=== PATIENT | female | born 1960 | race Caucasian/White ===

== ENCOUNTER 2025-05-13 19:24 | Emergency (ER) | payer OTHER, SELFPAY ==
[2025-05-13] VITALS (7 sets, daily range): BP systolic 129–169; BP diastolic 71–86; PULSE 80–148; RESP 17–21; TEMP 36–36.6; O2SAT 95–99; BMI 31.8
--- NOTE | 2025-05-13 | ECG_ITS ---
Test Reason : DIZZINESS Blood Pressure : */* mmHG Vent. Rate : 129 BPM Atrial Rate : * BPM P-R Int : * ms QRS Dur : 100 ms QT Int : 320 ms P-R-T Axes : * -30 -46 degrees QTcB Int : 468 ms Atrial fibrillation with rapid ventricular response Left axis deviation ST depression, consider subendocardial injury Nonspecific T wave abnormality Abnormal ECG No previous ECGs available Referred By: Generic ED Physician Electronically Signed By: Leander Fitzgerald
--- NOTE | ~2025-05-13 | CT_ITS ---
CLINICAL HISTORY: Acute headache and neck pain after yoga?dissection CT head without contrast Comparison: None provided Findings: Intraventricular hemorrhage in the lateral, 3rd and 4th ventricles with mild hydrocephalus. There is crowding of the structures in the foramen magnum with peripheral hyperdensity anterior to the lashawn and medulla which may be subarachnoid hemorrhage vs blood vessels. Lobulated density dorsal to the proximal cord at the level of the foramen magnum may be cerebellar tonsilllar ectopia versus epidural hematoma. Perry-white matter differentiation is preserved. There is no sinus or mastoid fluid. The orbits are within normal limits. No skull fracture. IMPRESSION: 1. Intraventricular hemorrhage involving lateral, 3rd and 4th ventricles with mild hydrocephalus. 2. Possible subarachnoid hemorrhage anterior to the lashawn and medulla. 3. Possible epidural hematoma versus cerebellar tonsillar herniation at foramen magnum. This document has been electronically signed by: Veto Harry MD on 05/13/2025 21:26:06
[2025-05-13 19:54] LABS: MANUAL DIFF FLAG NO
[2025-05-13 19:55] LABS: Hematocrit 33.2 % (37.0-47.0); Hemoglobin 11.4 g/dl (12.0-16.0); Imm Gran Abs Auto 0.13 X10*3/uL (0.00-0.03); Imm Gran Pct Auto 1.5 % (0.0-0.4); Lymphocytes Absolute Auto 2.8 X10*3/uL (1.2-4.9); Mean Corpuscular HGB Conc 34.3 g/dl (31.0-35.0); Mean Corpuscular Hemoglobin 28.6 pg (27.0-33.0); Mean Corpuscular Volume 83.4 fL (80.0-98.0); NRBC Abs Auto 0.000 X10*3/uL (0.0-0.012); NRBC Pct Auto 0.0 /100WBC (0.0-0.2); Platelet Count 278 X10*3/uL (160-400); Red Blood Count 3.98 X10*6/uL (4.20-5.50); White Blood Count 8.6 X10*3/uL (4.8-10.8)
[2025-05-13 20:09] LABS: Alanine Aminotransferase 20 U/L (0-31); Albumin Level 4.0 g/dL (3.5-5.0); Alkaline Phosphatase 43 U/L (39-117); Anion Gap 15 (12-20); Aspartate Amino Transferase 24 U/L (5-31); Blood Urea Nitrogen 24 mg/dL (9-16); Calcium 8.5 mg/dL (8.4-10.2); Carbon Dioxide 19 mmol/L (22-29); Chloride 107 mmol/L (96-108); Creatinine Clr Calc Pharmacy 68.3; Estimated Glomerular Filt Rate 59; Lipase 62 U/L (8-78); Potassium 3.1 mmol/L (3.3-5.1); Sodium 138 mmol/L (135-145); Total Protein 6.6 g/dL (6.5-8.0)
--- NOTE | 2025-05-13 20:12 | ED.GENADULT ---
HPI - General Adult General Chief complaint: Headache Stated complaint: headache after yoga Time Seen by Provider: 05/13/25 20:01 Source: patient Mode of arrival: EMS Limitations: no limitations History of Present Illness ED Provider: HPI narrative: Patient apparently was doing some yoga suddenly noticed headache in the right side with nausea and vomiting patient does not have history of migraine headache after arrival patient's still having the headache vomited 2 times monitoring coordinator showed patient has a AFib which is new onset ??ventricular rate of 129 beats per minute patient is slightly confused lasting questions very slowly GCS 15 Related Data Allergies Allergy/AdvReac Type Severity Reaction Status Date / Time Penicillins Allergy Unknown Verified 05/13/25 19:48 Review of Systems Review of Systems: Yes Unobtainable due to mental status PMFSH Social History Social History Smoked in Last 30 Days: No Use of substances other than those prescribed or required for medical reasons: No Advance Directives: No Advance Directives Information Provided: No Do you have a plan to hurt others: No Plan Physical Exam ED Vital Signs: Vital Signs - 24 hr 05/13/25 19:39 05/13/25 20:00 05/13/25 20:27 Temperature 96.8 F 97.2 F Pulse Rate 81 137 H 138 H Respiratory Rate 20 18 17 Blood Pressure 169/75 H 132/86 132/86 Pulse Oximetry 98 96 95 Oxygen Delivery Method Room Air Room Air Room Air 05/13/25 20:58 05/13/25 21:38 05/13/25 22:20 Temperature Pulse Rate 144 H 140 H 146 H Respiratory Rate 21 H 21 H Blood Pressure 129/75 135/76 141/75 H Pulse Oximetry 95 96 Oxygen Delivery Method Room Air Room Air 05/13/25 22:58 Temperature 98 F Pulse Rate 148 H Respiratory Rate 21 H Blood Pressure 142/71 H Pulse Oximetry 96 Oxygen Delivery Method Room Air BMI result Body Mass Index 31.8 Appearance: Alert. Oriented X3. Complaining of headache nauseated vomiting small amounts slow to respond Eyes: PERRLA, No Nystagmus ENT: Pharynx normal. Oral Mucosa moist Neck: Normal inspection. Neck supple. CVS: Tachycardic irregularly irregular. Pulses normal. Respiratory: No respiratory distress. Equal air entry bilateral, no wheezing/rales/rhonchi Abdomen: Soft and nontender. Bowel sounds are present, no mass palpable, no CVA tenderness Skin: Skin warm and dry. Normal skin color. Normal skin turgor. Extremities: No lower extremity edema. No calf tenderness Neuro: Oriented X 3. No motor deficit. No sensory deficit.No cerebellar signs , cranial nerves II-XII intact GCS 15 Medications Administered Discontinued Medications Generic Name Dose Route Start Last Admin Trade Name Freq PRN Reason Stop Dose Admin Diltiazem HCl 10 mg 05/13/25 20:20 05/13/25 20:58 Diltiazem Hcl 50 Mg/10 Ml Vial IVPUSH 05/13/25 20:21 10 mg NOW STA Administration Acetaminophen 1,000 mg in 100 mls @ 400 mls/hr 05/13/25 22:40 05/13/25 22:57 Ofirmev IV 05/13/25 22:54 Infused ONCE ONE Infusion Metoprolol Tartrate 5 mg 05/13/25 22:41 05/13/25 22:45 Metoprolol Tartrate 5 Mg/5 Ml Vial IVPUSH 05/13/25 22:42 5 mg ONCE ONE Administration Protocol Ondansetron HCl 4 mg 05/13/25 20:38 05/13/25 21:00 Ondansetron Hcl 4 Mg/2 Ml Vial IVPUSH 05/13/25 20:39 4 mg ONCE ONE Administration Medical Decision Making Medical Decision Making [facility] [place] Narrative: Patient's sister javed torres [phone] denies any significant past medical history patient's blood pressure improved to 129/74 ventricular rate [address] scan of the brain showed intra ventricular bleed involving lateral 3rd and 4th ventricular with mild hydrocephalus [facility] called for transfer patient's GCS is 15 complaining of headache 2139: Case discussed Dr. Arnold at [facility] accepted the patient no need for Decadron or Keppra at this time patient is slightly confused unaware where she is now GCS of 14 still complaining of headache 22:40 patient is still complaining of headache GCS of 14 blood pressure 139/71 , VR 142, will give Tylenol 1 g IV had Lopressor 5 mg IV EMS here take the patient to [facility] Differential Diagnosis Differential Diagnoses: The differential diagnosis associated with the presentation includes Subarachnoid bleed/intracranial bleed/CVA/carotid dissection Admission/Observation Consideration of admission/observation: Escalation of care including admission/observation considered Lab Data MDM Lab Attestation statement: I reviewed the patient's lab results. 05/13/25 19:47 05/13/25 19:47 Labs: Lab Results 05/13/25 05/13/25 05/13/25 Range/Units 19:47 19:50 20:29 WBC 8.6 (4.8-10.8) X10*3/uL RBC 3.98 L (4.20-5.50) X10*6/uL Hgb 11.4 L (12.0-16.0) g/dl Hct 33.2 L (37.0-47.0) % MCV 83.4 (80.0-98.0) fL MCH 28.6 (27.0-33.0) pg MCHC 34.3 (31.0-35.0) g/dl RDW 15.4 (11.0-16.0) % Plt Count 278 (160-400) X10*3/uL MPV 10.7 (9.4-12.3) fL Immature Gran % (Auto) 1.5 H (0.0-0.4) % Neut % (Auto) 51.0 (45-73) % Lymph % (Auto) 32.1 (20-40) % [place] % (Auto) 8.4 (2-11) % Eos % (Auto) 6.3 H (0-4) % Baso % (Auto) 0.7 (0-2) % Lymph # (Auto) 2.8 (1.2-4.9) X10*3/uL [place] # (Auto) 0.7 (0.1-1.2) X10*3/uL Eos # (Auto) 0.5 H (0.0-0.4) X10*3/uL Baso # (Auto) 0.1 (0.0-0.2) X10*3/uL Abs Immat Gran (auto) 0.13 H (0.00-0.03) X10*3/uL Absolute Neuts (auto) 4.4 (2.0-8.3) x10*3/uL Absolute Nucleated RBC 0.000 (0.0-0.012) X10*3/uL Nucleated RBC % (auto) 0.0 (0.0-0.2) /100WBC PT 11.4 (10.9-12.4) SEC INR 1.0 (0.9-1.1) APTT 27.8 (26.0-36.8) SEC Sodium 138 (135-145) mmol/L Potassium 3.1 L (3.3-5.1) mmol/L Chloride 107 (96-108) mmol/L Carbon Dioxide 19 L (22-29) mmol/L Anion Gap 15 (12-20) BUN 24 H (9-16) mg/dL Creatinine 0.96 (0.5-1.4) mg/dL Estim Creat Clear Calc 68.3 Estimated GFR 59 Random Glucose 147 H (60-115) mg/dL Calcium 8.5 (8.4-10.2) mg/dL Total Bilirubin 0.4 (0.0-1.0) mg/dL AST 24 (5-31) U/L ALT 20 (0-31) U/L Alkaline Phosphatase 43 (39-117) U/L Troponin I High Sens < 2.7 (<3.5-17.0) ng/L Total Protein 6.6 (6.5-8.0) g/dL Albumin 4.0 (3.5-5.0) g/dL Lipase 62 (8-78) U/L Urine Color Urine Appearance Urine pH (5.0-9.0) Ur Specific [place] (1.005-1.025) Urine Protein (Neg-Trace) mg/dL Urine Glucose (UA) (Negative) mg/dL Urine Ketones (Negative) mg/dL Urine Blood (Negative) Urine Nitrite (Negative) Ur Leukocyte Esterase (Negative) Urine RBC (0-2) /HPF Urine WBC (0-5) /HPF Ur Squamous Epith Cells (0-2) /HPF Urine Bacteria (None Seen) Hyaline Casts (0-2) /LPF Influenza Type A (PCR) NEGATIVE (Negative) Influenza Type B (PCR) NEGATIVE (Negative) RSV RNA Qual (PCR) NEGATIVE (Negative) SARS-CoV-2 RNA (RT-PCR) NEGATIVE (Negative) 05/13/25 Range/Units 22:38 WBC (4.8-10.8) X10*3/uL RBC (4.20-5.50) X10*6/uL Hgb (12.0-16.0) g/dl Hct (37.0-47.0) % MCV (80.0-98.0) fL MCH (27.0-33.0) pg MCHC (31.0-35.0) g/dl RDW (11.0-16.0) % Plt Count (160-400) X10*3/uL MPV (9.4-12.3) fL Immature Gran % (Auto) (0.0-0.4) % Neut % (Auto) (45-73) % Lymph % (Auto) (20-40) % [place] % (Auto) (2-11) % Eos % (Auto) (0-4) % Baso % (Auto) (0-2) % Lymph # (Auto) (1.2-4.9) X10*3/uL [place] # (Auto) (0.1-1.2) X10*3/uL Eos # (Auto) (0.0-0.4) X10*3/uL Baso # (Auto) (0.0-0.2) X10*3/uL Abs Immat Gran (auto) (0.00-0.03) X10*3/uL Absolute Neuts (auto) (2.0-8.3) x10*3/uL Absolute Nucleated RBC (0.0-0.012) X10*3/uL Nucleated RBC % (auto) (0.0-0.2) /100WBC PT (10.9-12.4) SEC INR (0.9-1.1) APTT (26.0-36.8) SEC Sodium (135-145) mmol/L Potassium (3.3-5.1) mmol/L Chloride (96-108) mmol/L Carbon Dioxide (22-29) mmol/L Anion Gap (12-20) BUN (9-16) mg/dL Creatinine (0.5-1.4) mg/dL Estim Creat Clear Calc Estimated GFR Random Glucose (60-115) mg/dL Calcium (8.4-10.2) mg/dL Total Bilirubin (0.0-1.0) mg/dL AST (5-31) U/L ALT (0-31) U/L Alkaline Phosphatase (39-117) U/L Troponin I High Sens (<3.5-17.0) ng/L Total Protein (6.5-8.0) g/dL Albumin (3.5-5.0) g/dL Lipase (8-78) U/L Urine Color Yellow Urine Appearance Clear Urine pH 6.0 (5.0-9.0) Ur Specific [place] 1.010 (1.005-1.025) Urine Protein Negative (Neg-Trace) mg/dL Urine Glucose (UA) Negative (Negative) mg/dL Urine Ketones 40 (Negative) mg/dL Urine Blood Negative (Negative) Urine Nitrite Negative (Negative) Ur Leukocyte Esterase Negative (Negative) Urine RBC 0-2 (0-2) /HPF Urine WBC 0-5 (0-5) /HPF Ur Squamous Epith Cells 0-2 (0-2) /HPF Urine Bacteria None Seen (None Seen) Hyaline Casts 0-2 (0-2) /LPF Influenza Type A (PCR) (Negative) Influenza Type B (PCR) (Negative) RSV RNA Qual (PCR) (Negative) SARS-CoV-2 RNA (RT-PCR) (Negative) Independent Interpretation I performed an independent interpretation of an: EKG Interpretation: Atrial fibrillation with ventricular rate of 129 left axis deviation no acute STT wave changes no acute ischemia Radiology Impression Discussion of test interpretation with radiology: I have reviewed the radiologist's reading. Radiologist Impression: [place] [id number] CT Scan Report Signed Patient: More Gutierrez MR#: [id number] : 1960 Acct:[id number] Age/Sex: 64 / F ADM Date: 05/13/25 Loc: .ED Attending Dr: Ordering Physician: Kenney Garcia MD Date of Service: 05/13/25 Procedure(s): CT head/brain wo IV con Accession Number(s): [id number] cc: Kenney Garcia MD~ Report Number: [id number]: Total DLP = 880.00 mGy-cm CLINICAL HISTORY: Acute headache and neck pain after yoga?dissection CT head without contrast Comparison: None provided Findings: Intraventricular hemorrhage in the lateral, 3rd and 4th ventricles with mild hydrocephalus. There is crowding of the structures in the foramen magnum with peripheral hyperdensity anterior to the lashawn and medulla which may be subarachnoid hemorrhage vs blood vessels. Lobulated density dorsal to the proximal cord at the level of the foramen magnum may be cerebellar tonsilllar ectopia versus epidural hematoma. Perry-white matter differentiation is preserved. There is no sinus or mastoid fluid. The orbits are within normal limits. No skull fracture. IMPRESSION: 1. Intraventricular hemorrhage involving lateral, 3rd and 4th ventricles with mild hydrocephalus. 2. Possible subarachnoid hemorrhage anterior to the lashawn and medulla. 3. Possible epidural hematoma versus cerebellar tonsillar herniation at foramen magnum. This document has been electronically signed by: Veto Harry MD on 05/13/2025 21:26:06 Critical Care Time Critical Care Time Critical Care Time: Yes Total Critical Care Time: 65 Attestation: Time is exclusive of separately billable procedures. Time includes: direct patient care, patient reassessment, coordination of patient care, interpretation of data (laboratory data, pulse oximetry, arterial blood gases and chest xrays), review of patient's medical records, medical consultation and documentation of patient care. Procedures excluded from critical care time: central intravenous line placement and electrocardiography. Discharge Plan Discharge Clinical Impression: Intraventricular hemorrhage, New onset a-fib Patient Disposition: [facility] Transfer Details: [facility] MICU Dr. Arnold Interventions: Acute Care Transfer Worksheet (ED) Last Done: 05/13/25 22:58 Discharge Date/Time: 05/13/25 22:59 Print Language: Albanian
[2025-05-13 20:17] LABS: Troponin-I High Sensitivity < 2.7 ng/L (<3.5-17.0)
--- NOTE | 2025-05-13 20:30 | PC.NURSE ---
on arrival pt is axox4 speaking full clear sentences and answers all questions appropriately. no facial droop/focal deficits noted. pt biba did yoga then was doing pilates when onset neck stiffness + aura which is present with hx migraines. R. sided TAPIA resolved now intermittent general headaches. +dizziness and nausea. IVF and zofran via ems. ekg done in route and NSR, ekg done on arrival showing afib rvr, pt denies hx of afib not on thinners. pt denies any recent fall/injury, felt fine prior to this episode. MD escalante notified. upon MD entering room pt does not participate with assessment, not answering questions. opens eyes upon stating name, looks at staff then closes eyes. when asked whats hurting pt points to forehead stating headache. per MD to get pt into CT scan for CT/CTA of head&neck. staff notified and pt to CT at this time.
[2025-05-13 20:34] LABS: Resp Syncy Virus RNA Qual PCR NEGATIVE (Negative); SARS COV2 PCR INHOUSE NEGATIVE (Negative)
--- NOTE | 2025-05-13 21:00 | PC.NURSE ---
MD aware GCS 15->14.
[2025-05-13 21:06] LABS: INTERNATIONAL NORM RATIO 1.0 (0.9-1.1); Prothrombin Time 11.4 SEC (10.9-12.4)
[2025-05-13 21:08] LABS: Partial Thromboplastin Time 27.8 SEC (26.0-36.8)
--- NOTE | 2025-05-13 21:49 | PC.NURSE ---
report given to Sujatha MUÑOZ at [facility] ICU unit [id number] [phone]. awaiting ems transport.
--- NOTE | 2025-05-13 22:10 | PC.NURSE ---
pt repeating needing to urinate, sat on bed gillis without UO. per MD to insert mclaughlin catheter. pt tolerated well draining clear yellow urine.
[2025-05-13 22:51] LABS: Appearance Urine Clear; Glucose Urine UA Negative (Negative); PH 6.0 (5.0-9.0); Specific Gravity - Urine 1.010 (1.005-1.025)
--- NOTE | 2025-05-13 22:57 | PC.NURSE ---
pt left with tylenol infusing. belongings sent home with sister javed.
== END 2025-05-13 22:59 | disposition short-term general hospital (02) ==
PROVIDERS: Emergency Provider Internal Medicine; PCP Internal Medicine
DX: I61.5 Nontraumatic intracerebral hemorrhage, intraventricular (principal); I48.91 Unspecified atrial fibrillation; R51.9 Headache, unspecified
CPT/HCPCS: 36415; 70450; 80053; 81001; 83690; 84484; 85025; 85610; 85730; 87637; 93005; 96374; 96375; 99285; 99291; J0131; J0616; J1163; J2405

== ENCOUNTER → 2025-05-13 19:53 | Outpatient (BNV) | payer OTHER, SELFPAY | PROVIDERS: Emergency Provider Internal Medicine; PCP Internal Medicine; Visit Provider Internal Medicine Cardiovascular Disease | DX: I48.91 Unspecified atrial fibrillation (principal) | CPT/HCPCS: 93010 ==

== ENCOUNTER → 2025-05-13 20:21 | Outpatient (BNV) | payer OTHER, SELFPAY | PROVIDERS: Emergency Provider Internal Medicine; PCP Internal Medicine; Visit Provider Radiology Diagnostic Radiology | DX: I61.5 Nontraumatic intracerebral hemorrhage, intraventricular (principal) | CPT/HCPCS: 70450 ==